=== PATIENT | female | born 1965 | race Two or more races ===

== ENCOUNTER 2023-03-30 19:46 | Emergency (ER) | payer BC, OTHER ==
[~2023-03-30] VITALS: Ht 162.6 cm; Wt 56.6 kg
[2023-03-30 20:38] VITALS: BP 160/72
[2023-03-30] MEDS ORDERED: CEPH-510 PO (23:09)
[2023-03-30] MEDS ORDERED: TETANUS-DIPTH-ACEL PERTUSSIS 0.5ML SYR Tdap IM ONE (23:15)
== END 2023-03-30 23:40 | disposition home or self-care (01) ==
LOC: ER 19:46
DX: S01.03XA Puncture wound without foreign body of scalp, initial encounter (principal); E11.9 Type 2 diabetes mellitus without complications; Z88.0 Allergy status to penicillin; W18.39XA Other fall on same level, initial encounter; Y93.89 Activity, other specified; Y92.89 Other specified places as the place of occurrence of the external cause; Y99.8 Other external cause status
CPT/HCPCS: 90471; 90715

== ENCOUNTER 2024-08-29 22:48 | Emergency (ER) | payer BC, OTHER ==
[~2024-08-29] VITALS: Ht 162.6 cm; Wt 53.7 kg
[~2024-08-29 22:48] MED LIST: CEPH-510 PO
[2024-08-29 23:58] LABS: Basophils # (auto) 0 10 ^3/uL (0-0.2); Basophils % (auto) 0.7 % (0.0-2.0); Eosinophils # (auto) 0.3 10 ^3/uL (0-0.8); Eosinophils % (auto) 4.2 % (0.0-7.0); Hemoglobin 14.4 g/dL (12.2-16.2); Lymphocytes # (auto) 2.6 10 ^3/uL (0.4-5.4); Lymphocytes % (auto) 38.4 % (10.0-50.0); Mean Corpuscular Hemoglobin 29.5 pg (28.0-32.0); Mean Corpuscular Hgb Conc. 33.5 g/dL (32.0-36.0); Monocytes # (auto) 0.4 10 ^3/uL (0-1.3); Monocytes % (auto) 6.5 % (0.0-12.0); Neutrophils # (auto) 3.4 10 ^3/uL (1.6-8.6); Neutrophils % (auto) 50.2 % (37.0-80.0); Nucleated Red Blood Cells % 0.1 %; Platelet Count (auto) 215 10^3/uL (140-450); Red Blood Cells 4.89 10^6/uL (4.0-5.20); Red Cell Distribution Width 13.1 % (11.8-14.3); White Blood Cell 6.7 10^3/uL (4.4-10.8)
[2024-08-30 00:11] LABS: Alanine Aminotransferase 33 U/L (7-40); Albumin 4.8 g/dL (3.2-4.8); Alkaline Phosphatase 106 U/L (46-116); Anion Gap 6 (5-15); Aspartate Aminotransferase 25 U/L (13-40); BUN/Creatinine Ratio 13.8 (10.0-20.0); Blood Urea Nitrogen 9 mg/dL (9-23); Calcium 10.4 mg/dL (8.7-10.4); Carbon Dioxide 28 mmol/L (20-31); Chloride 104 mmol/L (98-107); Glucose 214 mg/dL (74-106); Lipase 49 U/L (12-53); Potassium 3.9 mmol/L (3.5-5.1); Sodium 138 mmol/L (136-145)
[2024-08-30 00:13] LABS: Bilirubin, Total 1.2 mg/dL (0.2-1.0); Total Protein 7.4 g/dL (5.7-8.2)
[2024-08-30 00:18] LABS: Lactic Acid w/Reflex 2.7 mmol/L (0.4-2.0)
[2024-08-30 00:52] LABS: Urine Bacteria None Seen /hpf (None Seen)
[2024-08-30 01:12] LABS: Urine Blood Negative /uL (Negative); Urine Clarity Clear (Clear); Urine Color Light-Yellow (Yellow); Urine Protein, UAD Negative (Negative); Urine Specific Gravity 1.035 (1.001-1.035); Urine Urobilinogen Normal (Negative); Urine WBC 31 /hpf (0 - 5)
[2024-08-30] MEDS: SODIUM CHLORIDE 0.9% 1,000 ML IV ONE (02:39)
[2024-08-30 02:42] VITALS: BP 157/79; TEMP 97.8
[2024-08-30 02:43] VITALS: PULSE 58; RESP 18; O2SAT 99
[2024-08-30] MEDS ORDERED: NITR-87 PO (03:25)
== END 2024-08-30 04:23 | disposition home or self-care (01) ==
LOC: ER 22:48
DX: N39.0 Urinary tract infection, site not specified (principal); E11.9 Type 2 diabetes mellitus without complications; Z88.0 Allergy status to penicillin; X58.XXXA Exposure to other specified factors, initial encounter; Y93.89 Activity, other specified; Y92.69 Other specified industrial and construction area as the place of occurrence of the external cause; Y99.8 Other external cause status
CPT/HCPCS: 36415; 71045; 74176; 80053; 81001; 83605; 83690; 84484; 85025; 96360; 99284; J7030

== ENCOUNTER 2024-09-03 16:05 | Emergency (ER) | payer OTHER ==
[~2024-09-03] VITALS: Ht 162.6 cm; Wt 53.5 kg
[~2024-09-03 16:05] MED LIST changes: +NITR-87 PO
[2024-09-03 17:52] LABS: Urine Bacteria None Seen /hpf (None Seen)
[2024-09-03 18:12] LABS: Urine Blood Negative /uL (Negative); Urine Clarity Clear (Clear); Urine Color Light-Yellow (Yellow); Urine Protein, UAD Negative (Negative); Urine Specific Gravity 1.038 (1.001-1.035); Urine Urobilinogen Normal (Negative); Urine WBC 4 /hpf (0 - 5)
[2024-09-03] MEDS ORDERED: IBUP-1456 PO (18:45)
[2024-09-03] MEDS: KETOROLAC TROMETH 60MG/2ML VIAL IM ONE (18:47)
[2024-09-03 19:10] VITALS: BP 117/68; PULSE 61; RESP 16; TEMP 98; O2SAT 97
== END 2024-09-03 19:09 | disposition home or self-care (01) ==
LOC: ER 16:05
DX: S23.41XA Sprain of ribs, initial encounter (principal); E11.9 Type 2 diabetes mellitus without complications; Z79.899 Other long term (current) drug therapy; Z88.0 Allergy status to penicillin; W22.8XXA Striking against or struck by other objects, initial encounter; Y93.89 Activity, other specified; Y92.89 Other specified places as the place of occurrence of the external cause; Y99.0 Civilian activity done for income or pay
CPT/HCPCS: 81001; 96372; 99283; J1885